=== PATIENT | male | born 1955 | race Two or more races ===

== ENCOUNTER → 2020-11-04 12:28 | Outpatient (CLI) | payer OTHER | END | disposition home or self-care (01) | LOC: LAB 12:28 | PROVIDERS: ATTEND Internal Medicine Hematology & Oncology | DX: D50.8 Other iron deficiency anemias (principal); R79.89 Other specified abnormal findings of blood chemistry; I10 Essential (primary) hypertension; R74.02 Elevation of levels of lactic acid dehydrogenase [LDH]; K76.89 Other specified diseases of liver; D63.8 Anemia in other chronic diseases classified elsewhere; D55.0 Anemia due to glucose-6-phosphate dehydrogenase [G6PD] deficiency; D51.0 Vitamin B12 deficiency anemia due to intrinsic factor deficiency; R97.0 Elevated carcinoembryonic antigen [CEA]; R97.8 Other abnormal tumor markers; R97.20 Elevated prostate specific antigen [PSA]; D72.818 Other decreased white blood cell count; D51.3 Other dietary vitamin B12 deficiency anemia ==

== ENCOUNTER → 2021-01-31 07:14 | Outpatient (CLI) | payer OTHER | END | disposition home or self-care (01) | LOC: LAB 07:14 | PROVIDERS: ATTEND Internal Medicine Hematology & Oncology | DX: I10 Essential (primary) hypertension (principal); R79.89 Other specified abnormal findings of blood chemistry; D50.8 Other iron deficiency anemias; D72.818 Other decreased white blood cell count; D51.3 Other dietary vitamin B12 deficiency anemia ==

== ENCOUNTER 2023-03-02 09:43 | Outpatient (CLI) | payer OTHER | END 2023-03-02 09:50 | disposition home or self-care (01) | LOC: SONOGRAMA 09:43 | PROVIDERS: ATTEND Internal Medicine Hematology & Oncology | DX: N50.812 Left testicular pain (principal) ==